=== PATIENT | female | born 1945 | race Caucasian/White ===

== ENCOUNTER → 2016-12-24 | Outpatient (CLI) | payer MEDICARE, OTHER | END | disposition home or self-care (01) | LOC: PCVCCLINIC 13:32 | PROVIDERS: ATTEND Internal Medicine Cardiovascular Disease | DX: I25.10 Atherosclerotic heart disease of native coronary artery without angina pectoris (principal); I10 Essential (primary) hypertension; I48.91 Unspecified atrial fibrillation; I73.9 Peripheral vascular disease, unspecified; E78.00 Pure hypercholesterolemia, unspecified; R94.31 Abnormal electrocardiogram [ECG] [EKG]; Z79.01 Long term (current) use of anticoagulants; Z87.891 Personal history of nicotine dependence; Z79.899 Other long term (current) drug therapy | CPT/HCPCS: 80061; 93005; G0463 ==

== ENCOUNTER → 2017-01-08 | Outpatient (CLI) | payer MEDICARE, OTHER ==
--- NOTE | 2017-01-08 10:28 | PCVCIMAG ---
EXAM: NONINVASIVE ARTERIAL EXAMINATION OF BOTH LOWER EXTREMITIES INCLUDING PRE AND POST EXERCISE PRESSURE MEASUREMENTS AND DOPPLER WAVEFORMS INDICATION: Peripheral Arterial Disease. Leg pain. FINDINGS: Right Brachial: 133 mm Hg. Right Dorsalis Pedis: 141 mm Hg. Right Posterior Tibial: 119 mm Hg. Right ADITHYA = 0.97. Left Brachial: 145 mm Hg. Left Dorsalis Pedis: 0 mm Hg. Left Posterior Tibial: 106 mm Hg. Left ADITHYA = 0.73. Post Exercise: Left Brachial 152 mm Hg. Right Dorsalis Pedis: 98 mm Hg. Left Posterior Tibial: 82 mm Hg. Right ADITHYA = 0.64. Left ADITHYA = 0.54. IMPRESSION: No resting ischemia in the right lower extremity. Moderate exercise induced ischemia in the right lower extremity. Mild resting ischemia in the left lower extremity. Moderate exercise induced ischemia in the left lower extremity. LOC:[id number]
--- NOTE | 2017-01-08 10:32 | PCVCIMAG ---
EXAM: AORTOILIAC DUPLEX INDICATION: Peripheral arterial disease FINDINGS: AORTA: Suprarenal aorta measures maximum diameter of 2.7 cm. There is not a fusiform infrarenal aortic aneurysm. The infrarenal aorta measures maximum diameter of 2.4 cm. Distal aorta not well seen. RIGHT COMMON ILIAC ARTERY: Not well seen. RIGHT EXTERNAL ILIAC ARTERY: No significant stenosis. LEFT COMMON ILIAC ARTERY: Not well seen. LEFT EXTERNAL ILIAC ARTERY: No significant stenosis. IMPRESSION: No abdominal aortic aneurysm. Note is made the distal aorta and right and left common iliac arteries were not well seen due to the patient's body habitus. Moderate exercise-induced ischemia was noted on noninvasive pressure evaluation today. Further evaluation with CT angiography of the abdomen and pelvis is recommended. LOC:[id number]
== END | disposition home or self-care (01) ==
LOC: PCVCIMAG 07:59
PROVIDERS: ATTEND Internal Medicine Cardiovascular Disease
DX: I73.9 Peripheral vascular disease, unspecified (principal); I99.8 Other disorder of circulatory system; I10 Essential (primary) hypertension; E78.5 Hyperlipidemia, unspecified; E11.9 Type 2 diabetes mellitus without complications; Z95.828 Presence of other vascular implants and grafts
CPT/HCPCS: 93923; 93978; 93924

== ENCOUNTER → 2017-11-04 | Outpatient (CLI) | payer MEDICARE, OTHER | END | disposition home or self-care (01) | LOC: PCVCCLINIC 16:25 | DX: I25.10 Atherosclerotic heart disease of native coronary artery without angina pectoris (principal); J44.9 Chronic obstructive pulmonary disease, unspecified; I10 Essential (primary) hypertension; I73.9 Peripheral vascular disease, unspecified; E78.00 Pure hypercholesterolemia, unspecified; I48.91 Unspecified atrial fibrillation; I35.8 Other nonrheumatic aortic valve disorders; R94.31 Abnormal electrocardiogram [ECG] [EKG]; F17.210 Nicotine dependence, cigarettes, uncomplicated; Z79.4 Long term (current) use of insulin; Z87.891 Personal history of nicotine dependence | CPT/HCPCS: 85610; 93005; G0463 ==

== ENCOUNTER → 2017-11-20 | Outpatient (CLI) | payer MEDICARE, OTHER ==
[~2017-11-20] MED LIST: REGADENOSON 0.4 MG/5 ML DISP.SYRIN. IV
== END | disposition home or self-care (01) ==
LOC: PCVCIMAG 15:17
DX: I73.9 Peripheral vascular disease, unspecified (principal); I10 Essential (primary) hypertension; J44.9 Chronic obstructive pulmonary disease, unspecified; I48.91 Unspecified atrial fibrillation; R01.1 Cardiac murmur, unspecified; I35.8 Other nonrheumatic aortic valve disorders; R07.9 Chest pain, unspecified; E11.9 Type 2 diabetes mellitus without complications; Z79.4 Long term (current) use of insulin; Z95.820 Peripheral vascular angioplasty status with implants and grafts; Z87.891 Personal history of nicotine dependence
CPT/HCPCS: 78452; 93017; 93306; 93978; A9500; J2785

== ENCOUNTER → 2019-04-12 | Outpatient (CLI) | payer MEDICARE, OTHER ==
--- NOTE | 2019-04-12 15:43 | PCVCIMAG ---
APPROVED REPORT Study performed: 04/12/2019 14:42:16 EXAM: Comprehensive 2D, Doppler, and color-flow Echocardiogram Patient Location: Echo lab Status: routine BSA: 2.05 Rhythm: Atrial Fibrillation Other Information Study Quality: Technically Difficult Risk Factors: Cardiac Risk Factors: Hyperlipidemia, HTN, Smoking Indications Aortic Valve Disease Pulmonary hypertension 2D Dimensions IVSd: 12.24 (7-11mm)LVOT Diam: 19.83 (18-24mm) LVDd: 42.37 mm PWd: 12.34 (7-11mm)Ascending Ao: 37.88 (22-36mm) LVDs: 42.94 (25-40mm) Left Atrium: 45.75 (27-40mm) Aortic Root: 30.36 mm LV Single Plane 4CH: 32.98 % Volumes Left Atrial Volume (Systole) Single Plane 4CH: 90.32 mLSingle Plane 2CH: 80.07 mL LA ESV Index: 35.00 mL/m2 Aortic Valve AoV Peak Morgan.: 3.82 m/s AO Peak Gr.: 58.65 mmHgLVOT Max P.73 mmHg AO Mean Gr.: 38.82 mmHgLVOT Mean P.34 mmHg AO V2 Mean: 3.01 m/sLVOT Max V: 0.83 m/s AO V2 VTI: 92.48 cmLVOT Mean V: 0.53 m/s ERASMO (VTI): 0.52 [id number] V1 VTI: 15.56 cm ERASMO Vmax: 0.67 cm2 SV (LVOT): 48.02 mL Mitral Valve MV Decel. Time: 383.70 ms Tricuspid Valve TR Peak Morgan.: 3.03 m/s TR Peak Gr.: 36.83 mmHg Left Ventricle The left ventricle is normal size. There is normal LV segmental wall motion. Moderate concentric left ventricular hypertrophy. Left ventricular systolic function is normal. The left ventricular ejection fraction is within the normal range. LVEF is 50-55% This study is not technically sufficient to allow evaluation of the LV diastolic function due to atrial fibrillation. Right Ventricle The right ventricle is normal size. The right ventricular systolic function is normal. Atria Left atrium is dilated. Right atrium is mildly dilated. Aortic Valve Aortic valve leaflets is severely thickened and poorly seen. No aortic regurgitation is present. Peak gradient is 58mmHg. Mean gradient is 39mmHg. Calculated Aortic Valve gradient is .7cm2. Mitral Valve Severe mitral annular calcification. Mild mitral regurgitation. No evidence of mitral valve stenosis. Tricuspid Valve The tricuspid valve is normal in structure. Mild tricuspid regurgitation. Pulmonary artery pressure is 44mmHg. Pulmonic Valve The pulmonary valve is normal in structure. There is no pulmonic valvular regurgitation. Great Vessels The aortic root is normal in size. IVC is normal in size and collapses >50% with inspiration. Pericardium There is no pericardial effusion. <Conclusion> The left ventricle is normal size. Moderate concentric left ventricular hypertrophy. LVEF is 50-55% This study is not technically sufficient to allow evaluation of the LV diastolic function due to atrial fibrillation. The right ventricle is normal size. Left atrium is dilated. Right atrium is mildly dilated. Aortic valve leaflets is severely thickened and poorly seen. Peak gradient is 58mmHg. Mean gradient is 39mmHg. Calculated Aortic Valve gradient is .7cm2. Severe mitral annular calcification. Mild mitral regurgitation. Mild tricuspid regurgitation. Pulmonary artery pressure is 44mmHg. The aortic root is normal in size. There is no pericardial effusion.
--- NOTE | 2019-04-12 16:13 | PCVCIMAG ---
EXAM: ABDOMINAL ULTRASOUND COMPLETE INDICATION: Abdominal pain FINDINGS: Gallbladder: Surgically absent. Liver: Normal in size measuring 18.0 cm in length. No focal masses. Bile ducts: No intra or extra hepatic bile duct dilatation. The common bile duct measures 4.8 mm. Pancreas: Unremarkable where seen. Spleen: Normal in size measuring 9.5 cm in greatest dimension. 1.4 cm benign appearing cyst in the spleen. Right kidney: No hydronephrosis. Length measures 12.7 cm. Left kidney: No hydronephrosis. Length measures 14.0 cm. 5.3 x 3.7 cm benign cyst upper pole. Inferior vena cava: Normal in size where seen. Aorta: Normal in caliber where seen. IMPRESSION: Surgical absence of the gallbladder. 1.4 cm benign appearing cyst in the spleen which is otherwise unremarkable. 5.7 cm benign cyst upper pole left kidney. No acute process seen in the abdomen. LOC:[id number]
== END | disposition home or self-care (01) ==
LOC: PCVCIMAG 14:26
PROVIDERS: ATTEND Internal Medicine Cardiovascular Disease
DX: I11.9 Hypertensive heart disease without heart failure (principal); I08.1 Rheumatic disorders of both mitral and tricuspid valves; R94.31 Abnormal electrocardiogram [ECG] [EKG]; N28.1 Cyst of kidney, acquired; D73.4 Cyst of spleen; E78.00 Pure hypercholesterolemia, unspecified; I25.10 Atherosclerotic heart disease of native coronary artery without angina pectoris; I48.91 Unspecified atrial fibrillation; J44.9 Chronic obstructive pulmonary disease, unspecified; I73.9 Peripheral vascular disease, unspecified; I27.20 Pulmonary hypertension, unspecified; I65.23 Occlusion and stenosis of bilateral carotid arteries; M19.90 Unspecified osteoarthritis, unspecified site; Z72.0 Tobacco use; Z90.49 Acquired absence of other specified parts of digestive tract; Z79.01 Long term (current) use of anticoagulants; Z80.9 Family history of malignant neoplasm, unspecified; Z82.49 Family history of ischemic heart disease and other diseases of the circulatory system
CPT/HCPCS: 36415; 76700; 80061; 93005; 93306; G0463